=== PATIENT | female | born 1960 | race Caucasian/White ===

== ENCOUNTER 2023-10-30 13:02 | Emergency (ER) | payer OTHER, SELFPAY ==
[2023-10-30 13:04] VITALS: BP 139/72
--- NOTE | 2023-10-30 13:52 | ED.GENMED ---
History of Present Illness
<Marcella Christina PA-C - Last Filed: 10/30/23 18:13>
General
Chief Complaint: Abdominal Pain
Source: patient
Exam Limitations: none
Time Seen by Provider: 10/30/23 13:28
Nursing documentation reviewed up to this point in time: agreed with
Travel History
Have you had any contact with someone who has COVID-19?: No
Do you have any symptoms of coronavirus? Fever > 100 degrees, chills, cough, shortness of breath, sore throat, loss of taste or smell, muscle aches, or headache?: No
History of Present Illness
History of Present Illness:
Patient is a 62-year-old female with history hypertension, hyperlipidemia, diverticulosis presenting to the emergency department with complaints of left-sided abdominal pain for the past week. Patient states that approximately 1 week ago she
noticed a sharp pain in her left lower quadrant that was worse with movement. Pain does seem to come and go. Patient denies any radiation of pain into her back or down her leg. Patient does report nausea and multiple bowel movements throughout
the day over the past week. Patient denies any fever, chills, vomiting, or urinary symptoms.
Of note�patient did recently move and has been lifting heavy boxes. She is unsure if she may have strained a muscle.
Patient did have a colonoscopy performed a few years ago which showed evidence of diverticulosis although patient has never required antibiotics for diverticulitis flare in the past.
Review of Systems
<Marcella Christina PA-C - Last Filed: 10/30/23 18:13>
Review of Systems
Allergies reviewed?: Yes
All Other Systems: ROS reviewed and negative except as documented in HPI and ROS
Phy Exam
<Marcella Christina PA-C - Last Filed: 10/30/23 18:13>
Physical Exam
Physical Exam:
Vitals: Patient's vital signs are stable. Afebrile
General: Patient is very well appearing, no acute distress. Nontoxic-appearing
Skin: Warm and dry, no rashes or lesions
Head: Normocephalic, atraumatic
Eyes: Sclera nonicteric. EOMs intact. No nystagmus.
Throat: Protecting airway
Neck: Normal ROM, no cervical spine tenderness, no meningismus
Cardiac: Regular rate and rhythm. Systolic murmur noted over right second intercostal space
Pulm: Normal respiratory effort, no wheezes, rales, rhonchi heard on exam.
Abdomen: Abdomen soft. Very mild abdominal tenderness in left lower quadrant/inguinal region without rebound tenderness or guarding. No CVA tenderness bilaterally. No masses palpated
Extremities: Patient has full range of motion in left hip including internal and external rotation without pain. No obvious bruise or bony deformity of left lower extremity.no evidence of cyanosis or edema. Great distal pulses
Neuro: AAOx3. CN II-XII intact. No focal neurologic deficits. Steady gait.
Psychiatric: Normal affect.
Course
<Marcella Christina PA-C - Last Filed: 10/30/23 18:13>
Orders/Labs/Results
Orders:
Orders
10/30/23 13:53
0.9% Sodium Chloride 1000 ml [Nss] 1,000 ml IV BOLUS
10/30/23 13:56
CT Abd/Pel (IV only)-DH only Urgent
Comment: hx diverticulosis
Reason For Exam: LLQ abdominal pain, diarrhea
10/30/23 14:09
Complete Blood Count/With Diff Urgent
Comprehensive Metabolic Panel Urgent
Lipase Urgent
10/30/23 15:15
Urinalysis Reflex To Culture Urgent
Date Specimen was Collected: 10/30/23
Time Specimen was Collected: 15:07
Abnormal Lab Results
10/30/23
14:09
Hct 36.7 L %
(37.0-47.0)
MCV 79.1 L fL
(81.0-99.0)
Glucose 130 H mg/dl
(70-99)
Calcium 10.6 H mg/dl
(8.4-10.2)
Total Bilirubin 2.0 H mg/dl
(0.2-1.3)
10/30/23 14:09
10/30/23 14:09
Vital Signs
Initial and Last Documented VS:
Initial Vital Signs
Temp Pulse Resp BP Pulse Ox
98.7 F 75 18 139/72 96
10/30/23 13:04 10/30/23 13:04 10/30/23 13:04 10/30/23 13:04 10/30/23 13:04
Last Documented Vital Signs
Temp Pulse Resp BP Pulse Ox
98.7 F 76 18 132/60 97
10/30/23 13:04 10/30/23 16:46 10/30/23 16:46 10/30/23 16:46 10/30/23 16:46
<Kamran Mcbride DO - Last Filed: 10/30/23 14:11>
Orders/Labs/Results
Orders:
Orders
10/30/23 13:53
0.9% Sodium Chloride 1000 ml [Nss] 1,000 ml IV BOLUS
10/30/23 13:56
CT Abd/Pel (IV only)-DH only Urgent
Comment: hx diverticulosis
Reason For Exam: LLQ abdominal pain, diarrhea
10/30/23 14:09
Complete Blood Count/With Diff Urgent
Comprehensive Metabolic Panel Urgent
Lipase Urgent
10/30/23 15:15
Urinalysis Reflex To Culture Urgent
Date Specimen was Collected: 10/30/23
Time Specimen was Collected: 15:07
Abnormal Lab Results
10/30/23
14:09
Hct 36.7 L %
(37.0-47.0)
MCV 79.1 L fL
(81.0-99.0)
Glucose 130 H mg/dl
(70-99)
Calcium 10.6 H mg/dl
(8.4-10.2)
Total Bilirubin 2.0 H mg/dl
(0.2-1.3)
10/30/23 14:09
10/30/23 14:09
Vital Signs
Initial and Last Documented VS:
Initial Vital Signs
Temp Pulse Resp BP Pulse Ox
98.7 F 75 18 139/72 96
10/30/23 13:04 10/30/23 13:04 10/30/23 13:04 10/30/23 13:04 10/30/23 13:04
Last Documented Vital Signs
Temp Pulse Resp BP Pulse Ox
98.7 F 76 18 132/60 97
10/30/23 13:04 10/30/23 16:46 10/30/23 16:46 10/30/23 16:46 10/30/23 16:46
<Marcella Christina PA-C - Last Filed: 10/30/23 18:13>
MDM/Problems Addressed
Differential Diagnosis Includes:
Not limited to: Diverticulitis, constipation, colitis, kidney stone, UTI, muscle strain, hernia
MDM/Problems Addressed:
8-year-old female presenting with 1 week of worsening left lower quadrant pain made worse with movement. Patient has noticed frequent looser bowel movements without any blood or mucus in stool. Patient denies any fever, chills, vomiting. Patient
has been moving over the past 2 weeks and is wonder if she pulled a muscle. Patient does have a history of diverticulosis but has never had any diverticulitis flares in the past. Patient has stable vital signs upon arrival to emergency department.
She is afebrile. Physical exam as above. Patient is very well-appearing, in no apparent distress. Nontoxic-appearing. She has very mild tenderness in the left lower quadrant left inguinal region without any rebound or guarding. There is no
obvious bruising or mass felt. She has full range of motion of her left hip without pain. Patient ambulating around room without any pain or difficulty. Patient essentially asymptomatic at this time�I do suspect a muscular origin and pain very
low suspicion for diverticulitis at this time although given persistence of symptoms and known diverticulosis will do complete workup. Will check basic lab, lipase, urinalysis. Will check CT abdomen/pelvis. Patient declines any analgesia this
time. Will give IV fluids.
Labs noted. No clinically significant abnormalities. No evidence of leukocytosis. There was a mild elevation in bilirubin and calcium which patient was made aware of and will have followed up by her primary care provider outpatient. Urinalysis
shows no evidence of infection or blood in urine. CT abdomen/pelvis report reviewed. There is no evidence of acute pathology or inflammatory process in the abdomen. No evidence of pericolonic inflammatory stranding.
Patient remains very well-appearing in room. Workup here has been normal. No evidence of diverticulitis. Suspect this is likely a muscular strain. Patient will be discharged with return precautions and primary care follow-up. Recommend
Motrin/Tylenol as needed for pain. Did reach out to PCP follow-up and attempt to connect patient with new primary care provider. Patient and patient's family comfortable with plan. All questions answered
Chronic conditions affecting care:
N/A
Acute Exacerbation and/or Progression of Chronic Illness:
N/A
<Marcella Christina PA-C - Last Filed: 10/30/23 18:13>
*Radiology
Radiology exam reviewed: preliminary read by ED provider and radiology read reviewed
*Pulse Oximetry
Patient hypoxic: no
*EKG
Interpreted by ED Provider?: NA
*Test And Turn Up Technician Interpretation
Rate: Test And Turn Up Technician- N/A
*Critical Care Note
Total Time (30-74mins, 75-104mins- exclusive of procedures): Not Applicable
ED Attending Note
<Marcella Christina PA-C - Last Filed: 10/30/23 18:13>
-
Portions of this chart may have been created with voice recognition software.� Occasional wrong word or��sound alike� substitutions may have occurred due to the inherent limitations of voice recognition software.
<Kamran Mcbride DO - Last Filed: 10/30/23 14:11>
ED Attending Note
Patient seen and examined by attending physician: Yes
I performed the substantive portion of visit, reviewed & personally made and approve the management plan that is documented in note by myself or NELLY.: Yes
ED Attending Note:
Patient is a 62-year-old female with a history of PCOS and diverticulosis who presents to the emergency department with left lower quadrant pain that is getting progressively worse over the past week that is accompanied with frequent liquidy stools
without blood or mucus. Patient denies fever or chills. Patient has mild nausea but no vomiting. Patient states it hurts to walk and to turn. Patient does not have any pain with going over bumps in the car. On physical exam the patient has
minimal tenderness left lower quadrant but more tenderness along the left iliac crest. Patient's left hip is full range of motion without pain. There is no cyanosis, edema or tenderness of the extremities. Heart is regular and lungs are clear.
Patient is at risk for diverticulitis but would not be surprised if this is not diverticulitis is more musculoskeletal/fascia. Patient has no symptoms.
Discharge Plan
Departure
Patient Disposition: Home (Routine Discharge)
Date of Disposition: 10/30/23
Time of Disposition: 16:27
Patient with high blood pressure during this ER visit?: Yes
Condition: Good
Covid-19: Not Applicable
Discharge Problem:
Abdominal pain
Instructions: Abdominal Pain, Adult ED, BLOOD PRESSURE
Referrals:
NONE,* [Family Provider] -
Activity Restrictions/Additional Instructions:
RETURN TO THE EMERGENCY DEPARTMENT WITH ANY FEVER, CHILLS, INTRACTABLE NAUSEA/VOMITING, SEVERE ABDOMINAL PAIN, WORSENING IN CURRENT SYMPTOMS, OR ANY OTHER CONCERNS
-As discussed�you can take Tylenol/Motrin as needed for discomfort. You should stay well-hydrated. I recommend a bland diet advancing as tolerated.
-Your bilirubin level and calcium level were slightly elevated while in the emergency department today. You should have these rechecked by primary care physician within the next month.
-I have sent a message to our primary care support services coordinator due to reaching out and attempt to connect with the PCP. You should monitor your symptoms closely and return with any acute worsening or new symptoms.
Interventions
Interventions:
*Risk Screen - Suicide Last Done: 10/30/23 14:11
*General Assessment Last Done: 10/30/23 14:11
*Neglect/Abuse Screening Last Done: 10/30/23 14:11
ED- Fall Risk Assessment Last Done: 10/30/23 16:47
*ED COVID-19 Vaccine History Last Done: 10/30/23 14:11
*Nursing Disposition Last Done: 10/30/23 16:47
EX-Xbzhqr-Adfqaybebf Assessment Last Done: 10/30/23 14:11
Discharge Date and Time
Discharge Date/Time: 10/30/23 16:48
Print Language: AZERI
[2023-10-30] MEDS: NSS 1000 IV (14:09)
[2023-10-30 14:22] LABS: % Basophils 0.4 % (0-2); % Eosinophils 1.1 % (0-6); % Immature Granulocytes 0.3 % (0-0.5); % Lymphocytes 31.2 % (20.5-51.1); % Monocytes 7.5 % (1.7-9.3); % Neutrophils 59.5 % (42.2-75.2); Absolute Eosinophils 0.1 10^3/uL (0-0.7); Absolute Lymphocytes 2.5 10^3/uL (1.2-3.4); Absolute Monocytes 0.6 10^3/uL (0.1-0.6); Absolute Neutrophils 4.7 10^3/uL (1.4-6.5); Hematocrit 36.7 % (37.0-47.0); Hemoglobin 12.8 g/dL (12.0-16.0); Mean Corp Hgb Conc. 34.9 g/dL (33.0-37.0); Mean Corpuscular Hgb 27.6 pg (27.0-31.0); Mean Corpuscular Volume 79.1 fL (81.0-99.0); Mean Platelet Volume 9.1 fL (7.4-10.4); Nucleated Red Blood Cells % 0 %; Platelet Count 295 10^3/uL (130-400); Red Blood Cell Count 4.64 10^6/uL (4.20-5.40); Red Cell Dist. Width 14.1 % (11.5-14.5)
[2023-10-30 14:37] LABS: ALT (SGPT) 28 U/L (0-35); AST (SGOT) 28 U/L (14-36); Albumin 4.7 g/dl (3.5-5.0); Alkaline Phosphatase 57 U/L (38-126); Blood Urea Nitrogen 14 mg/dl (7-17); Calcium 10.6 mg/dl (8.4-10.2); Carbon Dioxide 30 mmol/L (22-30); Chloride 102 mmol/L (98-107); Glucose 130 mg/dl (70-99); Lipase 227 U/L (23-300); Potassium 4.5 mmol/L (3.5-5.1); Sodium 139 mmol/L (135-145); Total Protein 7.3 g/dl (6.3-8.2); eGFR > 60.00
[2023-10-30 14:41] VITALS: BP 153/64
[2023-10-30 15:21] LABS: Urine Albumin Negative (Neg - Trace); Urine Bilirubin Negative (Negative); Urine Character Clear (Clear); Urine Color Yellow; Urine Glucose Negative (Negative); Urine Ketone Negative (Negative); Urine Leukocyte Negative (Negative); Urine Nitrite Negative (Negative); Urine Occult Blood Negative (Negative); Urine Specific Gravity 1.005 (<1.030); Urine Urobilinogen Negative (Neg - 1+)
[2023-10-30 16:46] VITALS: BP 132/60
== END 2023-10-30 16:48 | disposition home or self-care (01) ==
LOC: EMR 13:02
PROVIDERS: Physician Assistant; EMERGENCY PHYSICIAN Emergency Medicine
DX: R10.32 Left lower quadrant pain (principal); R11.0 Nausea; R19.7 Diarrhea, unspecified; E28.2 Polycystic ovarian syndrome; K57.30 Diverticulosis of large intestine without perforation or abscess without bleeding; I10 Essential (primary) hypertension; E78.5 Hyperlipidemia, unspecified; K21.9 Gastro-esophageal reflux disease without esophagitis; E11.9 Type 2 diabetes mellitus without complications; F41.9 Anxiety disorder, unspecified; F32.A Depression, unspecified; Z79.84 Long term (current) use of oral hypoglycemic drugs
CPT/HCPCS: 99285; 96360; 74177; 80053; 81003; 83690; 85025; Q9967

== ENCOUNTER 2025-05-06 16:26 | Emergency (ER) | payer OTHER, SELFPAY ==
[2025-05-06 16:37] VITALS: BP 182/108
--- NOTE | 2025-05-06 17:47 | ED.GENMED ---
History of Present Illness
General
Chief Complaint: Musculo-Skeletal Complaint
Source: patient
Exam Limitations: none
Time Seen by Provider: 05/06/25 17:22
History of Present Illness
History of Present Illness:
64yoF with a history of hypertension, hyperlipidemia, obesity presenting with her sister for evaluation of a right foot injury. Patient dropped a radha jar yesterday afternoon and it landed on her right foot. She is presenting with pain and
swelling to the foot. She has been able to bear weight. No paresthesias.
Phy Exam
General Physical Exam
General Presentation: well appearing and no apparent distress
General age: appears stated age
General Skin: warm and dry
General Habitus: normal
General Mental: alert
ENT Exam
ENT Exam: normocephalic
Neurological Exam
Neurological Exam: alert
Levant Coma Scale
Eye Opening: Spontaneous
Verbal Response: Oriented
Motor Response: Obeys Commands
GCS Total Score: 15
Musculoskeletal Exam
Musculoskeletal Exam: other (R foot: Soft tissue swelling/contusion noted to dorsum of foot with tenderness. No deformity noted. ROM of ankle and toes intact. 2+ DP pulse and sensation intact. )
Skin Exam
Skin Exam: warm/dry
Psychiatric Exam
Psychiatric Exam: normal mood/affect
Course
Orders/Labs/Results
Orders:
Orders
05/06/25 16:48
CR Foot - Right Min 3 Views Urgent
Comment:
Reason For Exam: foot injury
05/06/25 17:46
boot [Ortho Boot Right- Treatment] ONCE
Short or tall?: Short
Vital Signs
Initial and Last Documented VS:
Initial Vital Signs
Temp Pulse Resp BP Pulse Ox
98.5 F 98 18 182/108 97
05/06/25 16:37 05/06/25 16:37 05/06/25 16:37 05/06/25 16:37 05/06/25 16:37
Last Documented Vital Signs
Temp Pulse Resp BP Pulse Ox
98.5 F 98 18 136/78 97
05/06/25 16:37 05/06/25 16:37 05/06/25 16:37 05/06/25 18:05 05/06/25 17:48
MDM/Problems Addressed
Differential Diagnosis Includes:
64yoF here with R foot pain after dropping an object onto it yesterday. Soft tissue swelling and contusion noted. RLE is neurovascularly intact. Differential diagnosis includes soft tissue injury vs. fracture
Foot x-rays obtained which are negative for fractures per my interpretation. Walking boot provided for comfort. Supportive care discussed including elevation and ice. Advised f/u with orthopedics if symptoms persist.
*Pulse Oximetry
SaO2: 97
Oxygen Mode of Delivery: Room air
Patient hypoxic: no
*Critical Care Note
Total Time (30-74mins, 75-104mins- exclusive of procedures): Not Applicable
ED Attending Note
-
Portions of this chart may have been created with voice recognition software.� Occasional wrong word or��sound alike� substitutions may have occurred due to the inherent limitations of voice recognition software.
Discharge Plan
Departure
Patient Disposition: Home (Routine Discharge)
Date of Disposition: 05/06/25
Time of Disposition: 17:50
Patient with high blood pressure during this ER visit?: Yes
Discharge Problem:
Contusion of right foot
Instructions: Contusion (DC)
Referrals:
NONE,* [Family Provider, Internal Medicine]
Amari Hammer MD [Active, Orthopedics]
Activity Restrictions/Additional Instructions:
Elevate your foot and apply ice to help with swelling. Wear walking boot for comfort.
Please follow-up with orthopedics if symptoms persist.
Interventions
Interventions:
*Neglect/Abuse Screening Last Done: 05/06/25 16:51
*Risk Screen - Suicide (C-SSRS) Last Done: 05/06/25 16:28
*Nursing Disposition Last Done: 05/06/25 18:45
ED-Musculoskeletal Assessment Last Done: 05/06/25 16:51
Discharge Date and Time
Discharge Date/Time: 05/06/25 18:25
Print Language: CZECH
[2025-05-06 18:05] VITALS: BP 136/78
== END 2025-05-06 18:25 | disposition home or self-care (01) ==
LOC: EMR 16:26
PROVIDERS: EMERGENCY PHYSICIAN Emergency Medicine
DX: S90.31XA Contusion of right foot, initial encounter (principal); W20.8XXA Other cause of strike by thrown, projected or falling object, initial encounter; I10 Essential (primary) hypertension; E78.5 Hyperlipidemia, unspecified
CPT/HCPCS: 99283; 73630